=== PATIENT | female | born 1990 | race Hispanic/Latino ===

== ENCOUNTER 2016-07-16 05:14 | Inpatient (IN) ==
--- NOTE | 2016-07-12 15:12 | HISTORY AND PHYSICAL ---
HISTORY OF PRESENT ILLNESS: Patient is a 26-year-old, G1 with suspected mono-Di twin intrauterine at 37 weeks and 3 days. Given mono-Di gestation, decision was made to proceed to the operating room for primary abdominal delivery. All risks, benefits, alternatives discussed with the patient. She desired to proceed. PAST MEDICAL HISTORY: None. PAST SURGICAL HISTORY: [place] teeth. OB HISTORY: G1. GYNECOLOGIC HISTORY: Noncontributory. SOCIAL HISTORY: No tobacco use. PHYSICAL EXAM: VITAL SIGNS: Today patient afebrile. Vital signs are stable. GENERAL: Patient in no acute distress. ABDOMEN: Soft, gravid, nontender to palpation. PELVIC: Patient declines cervical exam. Was noted to be 2 cm dilated, previously. ASSESSMENT AND PLAN: A 26-year-old G1 with monochorionic-diamniotic intrauterine at 37 weeks and 3 days. Will proceed to the operating room for primary abdominal delivery.
--- NOTE | 2016-07-15 19:36 | HISTORY AND PHYSICAL ---
HISTORY OF PRESENT ILLNESS: The patient presents for primary section on 07/16/2016. Patient with suspected mono DI twin intrauterine at 37 weeks so the decision made to proceed to the operating room primary abdominal delivery. PAST MEDICAL HISTORY: None. PAST SURGICAL HISTORY: None. OB HISTORY: G1. INTERNATIONAL EXCHANGE COORDINATOR HISTORY: Noncontributory. SOCIAL HISTORY: No tobacco use. PHYSICAL EXAM: VITAL SIGNS: Patient afebrile. Vital signs stable. GENERAL: Patient in no acute distress. ABDOMEN: Soft, gravid, nontender palpation, on last exam cervix 2 cm dilated. ASSESSMENT AND PLAN: 3 with suspected mono DI twin intrauterine . Will proceed to the operating room for primary abdominal delivery.
[2016-07-16] MEDS ORDERED: PEPCID PO ONE (05:17)
[2016-07-16] MEDS ORDERED: REGLAN PO ONE (05:17)
[2016-07-16] MEDS ORDERED: LR 1,000 ML IV SCH (05:30)
[2016-07-16] MEDS ORDERED: TORADOL ONE (06:25)
[2016-07-16] MEDS ORDERED: FENTANYL ONE (06:25)
[2016-07-16] MEDS ORDERED: PITOCIN ONE ×2 (06:25→08:43)
[2016-07-16] MEDS ORDERED: BENADRYL ONE (06:25)
[2016-07-16] MEDS ORDERED: ZOFRAN ONE (06:26)
[2016-07-16] MEDS ORDERED: DURAMORPH ONE (06:26)
[2016-07-16] MEDS ORDERED: LR 1,000 ML ONE (06:26)
[2016-07-16] MEDS ORDERED: PITOCIN 20 UNITS/LR 1,000 ML ONE (06:26)
[2016-07-16] MEDS ORDERED: HEMABATE ONE (06:26)
[2016-07-16] MEDS ORDERED: METHERGINE ONE (06:27)
[2016-07-16] MEDS ORDERED: SODIUM CHLORIDE 0.9% INJ ONE (06:43)
[2016-07-16] MEDS ORDERED: PEPCID IV ONE (06:43)
[2016-07-16] MEDS ORDERED: REGLAN IV ONE (06:43)
[2016-07-16] MEDS ORDERED: BICITRA PO ONE (06:45)
[2016-07-16 06:47] LABS: BASO% 0.2 % (0.0-0.8); EOS# 0.06 X1000 (0.0-0.7); EOS% 0.6 % (0.0-10.0); HEMATOCRIT 31.4 % (37.0-47.0); HEMOGLOBIN 9.4 g/dL (12.0-16.0); IMM GRAN# 0.06 X1000 (0.0-0.04); IMM GRAN% 0.6 % (0.0-0.5); LYMPH# 2.14 X1000 (1.2-3.4); LYMPH% 20.3 % (20.5-51.1); MANUAL DIFF NEEDED? YES; MCHC 29.9 g/dL (33-37); MCV 70.1 FL (81-99); MONO% 5.7 % (1.7-9.3); MPV 10.1 FL (7.4-10.4); NEUT% 72.6 % (42.2-75.2); PLT 325 X1000 (130-400); RBC 4.48 XMIL (4.2-5.4)
[2016-07-16] MEDS: CLINDAMYCIN 900 MG/NS 50 ML IV SCH ×2 (06:50→18:06)
[2016-07-16 07:39] LABS: LYMPHS 22 % (21-51); MONO 6 % (1-9)
[2016-07-16] MEDS ORDERED: M-M-R II VACCINE SUBQ ONE (08:18)
[2016-07-16] MEDS ORDERED: DEMEROL PO PRN ×2 (08:18)
[2016-07-16] MEDS ORDERED: PITOCIN 20 UNITS/LR 1,000 ML IV ONE (08:18)
[2016-07-16] MEDS ORDERED: DEMEROL IM PRN (08:18)
[2016-07-16] MEDS ORDERED: AMBIEN PO PRN (08:18)
[2016-07-16] MEDS ORDERED: CYTOTEC PO PRN (08:18)
[2016-07-16] MEDS ORDERED: NORCO-5 PO PRN (08:18)
[2016-07-16] MEDS ORDERED: PHENERGAN IM PRN (08:18)
[2016-07-16] MEDS ORDERED: MYLICON PO PRN (08:18)
[2016-07-16] MEDS ORDERED: HYDROXYZINE PO PRN (08:18)
[2016-07-16] MEDS ORDERED: BOOSTRIX VACCINE IM ONE (08:18)
[2016-07-16] MEDS ORDERED: PITOCIN IM PRN (08:18)
[2016-07-16] MEDS ORDERED: HYDROXYZINE IM PRN (08:18)
[2016-07-16] MEDS ORDERED: DULCOLAX PR PRN (08:18)
[2016-07-16] MEDS ORDERED: NEO-SYNEPHRINE ONE (08:42)
[2016-07-16] MEDS ORDERED: ZOFRAN ODT PO PRN (09:48)
[2016-07-16] MEDS ORDERED: NARCAN INJ PRN (09:48)
[2016-07-16] MEDS ORDERED: BENADRYL IV PRN (09:48)
[2016-07-16] MEDS ORDERED: ZOFRAN IV PRN ×2 (09:48)
[2016-07-16] MEDS ORDERED: METHERGINE IM ONE (10:46)
[2016-07-16] MEDS: DILAUDID IV PRN ×2 (10:56→16:47)
--- NOTE | 2016-07-16 13:24 | OPERATIVE NOTE ---
PROCEDURE DATE: 07/16/2016 PREOPERATIVE DIAGNOSIS: Suspected monochorionic-diamniotic twin intrauterine at 37 weeks. POSTOPERATIVE DIAGNOSIS: Suspected monochorionic-diamniotic twin intrauterine at 37 weeks. PROCEDURE PERFORMED: Primary low segment transverse section. SURGEON: Madina Garcia MD MAIL HANDLERS SUPERVISOR: Tho Webster MD ESTIMATED BLOOD LOSS: 500 mL. ANESTHESIA: Spinal. COMPLICATIONS: None. COUNTS: Correct x2. FINDINGS: Viable female infant x2. Grossly normal uterus, bilateral fallopian tubes, and ovaries. INDICATIONS FOR PROCEDURE: The patient is a 26-year-old G1 with suspected mono/di twin intrauterine at 37 weeks. The patient presented for primary abdominal delivery. Risks, benefits, and alternatives were discussed and she desired to proceed. PROCEDURE IN DETAIL: After proper informed consent was obtained, the patient was taken to the operating room and placed in the dorsal supine position with adequate spinal anesthesia. The abdomen was prepped and draped in the normal sterile fashion for abdominal surgery. After a proper time-out was performed, the abdomen was tested with an Allis clamp and noted to be appropriately anesthetized. A low transverse incision was made on the skin using a scalpel. This was carried down to the underlying fascia which was scored in the midline. The fascial incision was extended laterally and cephalic using Maria scissors. The inferior aspect of the fascial defect was grasped with Chantel clamps and dissected off the underlying rectus abdominis muscle. Similar was carried out to the superior aspect of the fascial defect. The muscles were bluntly in the midline. The peritoneum was entered bluntly and stretched using the shale planer operator's hand. A bladder blade was placed to protect the bladder. A low transverse incision was made in the lower uterine segment and stretched using the shale planer operator's hand. Amniotomy was performed with return of clear fluid. Baby A was delivered in the vertex presentation. The cord was doubly clamped and cut. The infant was handed off to the awaiting pediatric staff. Baby B was subsequently delivered in the vertex presentation. The cord was doubly clamped, cut, and the infant was handed off to the awaiting pediatric staff. Cord blood was obtained. The placentas were delivered via fundal massage. The uterus was exteriorized, and cleared free of all clot and debris. The hysterotomy was reapproximated using #1 chromic in a running, locking fashion. Additional [id number] suture was placed for added hemostasis. The posterior cul-de- sac was cleared free of all clot and debris, and the uterus was returned to the abdomen. The hysterotomy was reinspected and noted to be hemostatic. The paracolic gutters were cleared free of all clot and debris. The abdomen was copiously irrigated. The peritoneum was then reapproximated using 3-0 chromic in a running, continuous fashion. The muscles were inspected and noted to be hemostatic. The fascia was then reapproximated using #1 chromic in a running, continuous fashion. The subcutaneous tissue was made hemostatic using Bovie electrocautery. The subcutaneous tissue was reapproximated using 3-0 chromic in a running, continuous fashion. The skin was reapproximated using 4-0 Monocryl in subcuticular fashion. The patient tolerated the procedure well and was transferred to recovery in stable condition.
[2016-07-16] MEDS: PITOCIN 10 UNITS/LR 1,000 ML IV SCH ×2 (13:50→21:57)
[2016-07-16] MEDS: MYLICON PO SCH ×3 (15:17→20:21)
[2016-07-16] MEDS: METHERGINE PO SCH ×2 (17:46→22:56)
[2016-07-16] MEDS: PERICOLACE PO SCH (20:21)
[2016-07-16] MEDS: NORCO-10 PO PRN (21:57)
[2016-07-17] MEDS: METHERGINE PO SCH ×4 (06:01→18:17)
[2016-07-17 06:37] LABS: HEMATOCRIT 22.2 % (37.0-47.0); HEMOGLOBIN 6.4 g/dL (12.0-16.0); MCH 20.9 PG (27-31); MCHC 28.8 g/dL (33-37); MCV 72.5 FL (81-99); MPV 10.4 FL (7.4-10.4); RBC 3.06 XMIL (4.2-5.4)
[2016-07-17] MEDS: MYLICON PO SCH ×5 (07:24→20:16)
[2016-07-17] MEDS: CLINDAMYCIN 900 MG/NS 50 ML IV SCH ×2 (07:27→15:28)
[2016-07-17] MEDS: MOTRIN PO PRN ×2 (08:07→21:02)
[2016-07-17] MEDS: NORCO-10 PO PRN ×3 (08:07→21:18)
[2016-07-17] MEDS ORDERED: LR 1,000 ML IV SCH (08:18)
[2016-07-17 12:54] LABS: HEMATOCRIT 21.8 % (37.0-47.0); HEMOGLOBIN 6.3 g/dL (12.0-16.0)
[2016-07-17] MEDS: PERICOLACE PO SCH (20:16)
[2016-07-18] MEDS: METHERGINE PO SCH ×2 (00:02→06:10)
[2016-07-18] MEDS ORDERED: BENADRYL PO ONE (06:33)
[2016-07-18] MEDS: CLINDAMYCIN 900 MG/NS 50 ML IV SCH (07:40)
[2016-07-18] MEDS: MYLICON PO SCH ×4 (09:10→20:36)
[2016-07-18] MEDS: MOTRIN PO PRN (13:44)
[2016-07-18] MEDS: PERICOLACE PO SCH (20:36)
[2016-07-18] MEDS: NORCO-10 PO PRN (20:36)
[2016-07-19 08:24] VITALS: BP 146/89
[2016-07-19] MEDS: MYLICON PO SCH (08:25)
--- NOTE | 2016-07-19 12:18 | DISCHARGE SUMMARY ---
ADMISSION DATE: 07/16/2016 DISCHARGE DATE: 07/19/2016 ADMITTING DIAGNOSIS: Twin gestation for delivery. DISCHARGE DIAGNOSES: 1. delivered via delivery. 2. Anemia. CONDITION: Stable. DIET: As tolerated. ACTIVITY: Routine postoperative and instructions. MEDICATIONS: Percocet 10, Motrin 800, vitamins with iron and stool softeners. HOSPITAL COURSE: She is to follow up in [address] Carmichael. Please refer to Ms. Yoo records and [facility] P report and operative note. Today she is postop day 3 and desiring discharge. She is without complaints. PHYSICAL EXAMINATION: Vital signs: Stable. She is afebrile. Lungs: Clear. Heart: Regular sinus rhythm. Abdomen: Soft. Incision dry and intact. Extremities: Plus 2 lower extremity edema. LABORATORY: Hemoglobin stable at 6.3. DISPOSITION: We will discharge her with the above instructions.
== END 2016-07-19 11:45 | disposition home or self-care (01) | DRG 766 ==
LOC: P.LD 05:14 → P.WC 11:09
PROVIDERS: ADMIT Obstetrics & Gynecology; ATTEND Obstetrics & Gynecology
PROC: 10D00Z1 Extraction of Products of Conception, Low, Open Approach (ICD-10-PCS; principal; 2016-07-16 07:30)
DX: O30.033 Twin pregnancy, monochorionic/diamniotic, third trimester (principal); Z37.2 Twins, both liveborn; O32.1XX1 Maternal care for breech presentation, fetus 1; O32.1XX2 Maternal care for breech presentation, fetus 2; Z3A.37 37 weeks gestation of pregnancy; O32.2XX1 Maternal care for transverse and oblique lie, fetus 1; O32.2XX2 Maternal care for transverse and oblique lie, fetus 2; D64.9 Anemia, unspecified; O90.81 Anemia of the puerperium; Z23 Encounter for immunization; R09.89 Other specified symptoms and signs involving the circulatory and respiratory systems; O90.89 Other complications of the puerperium, not elsewhere classified
CPT/HCPCS: 36415; 59025; 85014; 85018; 85025; 85027; 86592; 86850; 86900; 86901; 90707; 94640; 94761; 94799; J1170; J1200; J1885; J2210; J2274; J2370; J2405; J2590; J2765; J3010; J7120; S0028; S0077